=== PATIENT | male | born 1950 | race Caucasian/White ===

== ENCOUNTER 2017-06-21 09:17 | Outpatient (CLI) | payer MEDICARE ==
--- NOTE | 2017-06-21 11:13 | CT ---
CHEST CT SCAN WITHOUT IV CONTRAST: Date: 06/21/17 HISTORY: 66-year-old male with history of follow-up lung nodule. COMPARISON: 09/15/16. FINDINGS: There is a persistent but smaller 0.9 cm diameter solid appearing nodule in the medial right lung ape x region, which has decreased in size from the 09/15/16 study. The multiple other ground-glass opacit y and nodules noted in both lungs have resolved since the prior study. Minimal three vessel coronary artery calcific disease. No pleural effusion or pericardial effusion. No mediastinal mass or adenopat hy. Small, stable right pleural based calcified granuloma in the anterior right upper lobe. IMPRESSION: Decrease in size of solid appearing pulmonary nodule in the medial right apex, now measuring 0.9 cm, where as it previously measured 1.1 cm. There is resolution of multiple other bilateral pulmonary nod ular densities and ground-glass opacities in both lungs, which have all resolved. No evidence for new process. POS: JESSICA
== END 2017-06-21 09:18 | disposition home or self-care (01) ==
LOC: CT 09:17
PROVIDERS: ATTEND Internal Medicine Critical Care Medicine
DX: R91.1 Solitary pulmonary nodule (principal)
CPT/HCPCS: 71250

== ENCOUNTER 2021-03-19 11:24 | Day surgery (SDC) | payer MEDICARE ==
[2021-03-17 09:46] VITALS: BMI 30.9
[2021-03-19] MEDS ORDERED: Fentanyl 100 MCG/2 ML VIAL ONE (12:15)
[2021-03-19] MEDS ORDERED: Xylocaine 1% w/ Epi 1:100K 10 ML VIAL ONE (12:17)
[2021-03-19 12:47] LABS: Hemoglobin 13.1 g/dL (14.0-18.0)
[2021-03-19 12:57] LABS: SARS-CoV-2 NAA Rapid Test Not Detected (NotDetected)
[2021-03-19 13:00] LABS: Anion Gap 15 mmol/L (10-20); BUN (Urea Nitrogen) 22 mg/dL (8.4-25.7); Calc. Creatinine Clearance 101 mL/min (70-130); Calcium 9.6 mg/dL (7.8-10.44); Carbon Dioxide 27 mmol/L (23-31); Chloride 99 mmol/L (98-107); Glucose 113 mg/dL (80-115); Potassium 4.6 mmol/L (3.5-5.1); Sodium 136 mmol/L (136-145)
[2021-03-19] MEDS ORDERED: Ondansetron PF 4 MG/2 ML Vial ONE (13:24)
[2021-03-19] MEDS ORDERED: Dexamethasone 20 MG/5 ML VIAL ONE (13:24)
[2021-03-19] MEDS ORDERED: Lidocaine 1% PF 5 ML VIAL ONE (13:24)
[2021-03-19] MEDS ORDERED: Glycopyrrolate 0.2 MG/ML 5 ML SYRINGE ONE (13:24)
[2021-03-19] MEDS ORDERED: Rocuronium Bromide 10 MG/ML (10ML VIAL) ONE (13:24)
[2021-03-19] MEDS ORDERED: PROPOFOL 200 MG/20 ML VIAL ONE (13:24)
[2021-03-19] MEDS ORDERED: hydrALAZINE 20 MG/ML VIAL ONE (14:37)
== END 2021-03-19 16:05 | disposition home or self-care (01) ==
LOC: SDC 11:24
PROVIDERS: ATTEND Specialist
PROC: 0KB30ZZ Excision of Left Neck Muscle, Open Approach (ICD-10-PCS; principal; 2021-03-19)
DX: D17.0 Benign lipomatous neoplasm of skin and subcutaneous tissue of head, face and neck (principal); I10 Essential (primary) hypertension; E78.00 Pure hypercholesterolemia, unspecified; E11.9 Type 2 diabetes mellitus without complications; Z87.891 Personal history of nicotine dependence; Z79.4 Long term (current) use of insulin; Z79.82 Long term (current) use of aspirin; Z79.84 Long term (current) use of oral hypoglycemic drugs; Z79.899 Other long term (current) drug therapy; Z20.822 Contact with and (suspected) exposure to COVID-19
CPT/HCPCS: 21554; 80048; 82962; 85014; 85018; 93005; U0002; 36416; 88304; 93010; J0360; J1100; J2405; J2704; J3010